=== PATIENT | male | born 1980 | race African-American/Black ===

== ENCOUNTER 2016-09-19 11:56 | Emergency (ER) | payer OTHER ==
[~2016-09-19] VITALS: Ht 182.9 cm; Wt 115.5 kg
[2016-09-19] MEDS ORDERED: PAROXETINE HCL10 MG PO (12:33)
[2016-09-19] MEDS ORDERED: SIMVASTATIN10 MG PO (12:33)
[2016-09-19] MEDS ORDERED: EARWAX TREATMEN15 M1 BOTH EARS (12:33)
[2016-09-19] MEDS ORDERED: ERGOCALCIF50000 UNIT PO (12:34)
[2016-09-19] MEDS ORDERED: PAIN RELIEF650 MG PO (12:35)
[2016-09-19] MEDS ORDERED: ADVIL,NUPRIN,M200 MG PO (12:37)
[2016-09-19] MEDS ORDERED: NAPROSYN500 MG PO (12:37)
[2016-09-19 13:18] LABS: EOSINOPHIL (%) 0.8 % (0-5); EOSINOPHIL COUNT 0.1 K/uL (0-0.3); HEMATOCRIT 44.9 % (38.0-50.0); IMMATURE GRANULOCYTE (%) 0.1 % (0.0-0.7); INSTRUMENT ABS NEUTROPHIL CT 6.3 K/uL; LYMPHOCYTE COUNT 2.1 K/uL (1.0-2.8); MCH 27.8 PG (29.0-34.0); MCV 84.2 FL (86-99); MEAN PLAT.VOLUME 12.3 uM^3 (9.0-12.4); MONOCYTE (%) 6.5 % (3-12); MONOCYTE COUNT 0.6 K/uL (0-0.8); NEUTROPHIL (%) 69.4 % (45-76); NEUTROPHIL COUNT 6.3 K/uL (1.8-6.4); PLATELET COUNT 210 K/uL (156-360); RBC DIS.WIDTH-CV 12.8 % (11.8-14.6); RBC DIS.WIDTH-SD 39.6 % (39-53); RED BLOOD COUNT 5.33 M/uL (4.00-5.50); WHITE BLOOD COUNT 9.1 K/uL (4.1-10.2)
[2016-09-19 13:26] LABS: CHLORIDE 106 mEq/L (99-109); POTASSIUM 3.9 mEq/L (3.7-5.4); SODIUM 140 mEq/L (136-147)
[2016-09-19 13:28] LABS: GLUCOSE 91 mg/dL (70-99)
[2016-09-19 13:29] LABS: ANION GAP 10 MEQ/L (2-14)
[2016-09-19 13:30] LABS: TOTAL BILIRUBIN 0.4 mg/dL (0.0-1.0)
[2016-09-19 13:32] LABS: ALKALINE PHOSPHATASE 68 IU/L (3-129); GFR ESTIMATE (CALCULATED) > 59 mL/min/
[2016-09-19 13:33] LABS: UREA NITROGEN (BUN) 6 mg/dL (9-23)
[2016-09-19 13:37] LABS: TROP-I INTERPRETATION NEGATIVE; TROPONIN-I < 0.01 ng/mL (0.0-0.30)
[2016-09-19 14:06] VITALS: BP 146/93
== END 2016-09-19 14:07 | disposition home or self-care (01) ==
LOC: EME → EDBD 11:56 → EME 11:56
PROVIDERS: Emergency Medicine
DX: R07.89 Other chest pain (principal)
CPT/HCPCS: 71010; 80053; 84484; 85025; 93005; 99281; 99284